=== PATIENT | female | born 1980 | race Caucasian/White ===

== ENCOUNTER 2019-05-17 17:04 | Emergency (ER) | payer OTHER ==
[2019-05-17 17:39] VITALS: BMI 25.0
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
[2019-05-17 18:45] VITALS: BP 116/66; PULSE 86; TEMP 99.3
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
== END 2019-05-17 19:56 | disposition home or self-care (01) ==
LOC: JER 17:04
DX: O99.89 Other specified diseases and conditions complicating pregnancy, childbirth and the puerperium (principal); S29.8XXA Other specified injuries of thorax, initial encounter; Y04.2XXA Assault by strike against or bumped into by another person, initial encounter; Y93.89 Activity, other specified; Y92.89 Other specified places as the place of occurrence of the external cause; Y99.0 Civilian activity done for income or pay; Z3A.25 25 weeks gestation of pregnancy
CPT/HCPCS: 99281-25

== ENCOUNTER 2019-09-19 11:35 | Inpatient (IN) | payer OTHER ==
[2019-09-19] MEDS ORDERED: AMPICILLIN - 2 GM in SODIUM CHLORIDE 100 ML IVPB ONE (12:41)
--- NOTE | 2019-09-19 12:50 | HP ---
Past Medical History - Primary Care Physician PCP:: Josafat Ramirez - Admission Chief Complaint: Spotting History of Present Illness: Patient reports spotting earlier this morning followed by sever cramping. She reports the amount of spotting as an "orange size". She denies LOF, contractions have improved now, and she reports +FM. Patient reports headache that required her to take "advil." She denies SOB, CP, N/V, blurry vision, RUQ/ epigastric pain, LE swelling. History Source: Patient Limitations to Obtaining History: No Limitations - Past Medical History DRIER ATTENDANT: No: Alzheimer's, CVA, Dementia, Migraine, Multiple Sclerosis, Peripheral Neuropathy, Parkinson's, Seizure, Syncope, TIA, Vertigo, Other Cardiovascular: No: AFIB, Aneurysm, Aortic Insufficiency, Aortic Stenosis, CAD, CHF, Deep Vein Thrombosis, HTN, Hyperlipdemia, TN, Mitral Insufficiency, Mitral Stenosis, Murmur, Pulmonary Hypertension, Other Pulmonary: No: Asthma, Bronchitis, Cancer, COPD, O2 Dependent, Pneumonia, Previously Intubated, Pulmonary Embolus, Pulmonary Fibrosis, Sleep Apnea, Other Gastrointestinal: No: Ascites, Cancer, Constipation, Crohn's Disease, Diverticulitis, Diverticulosis, Esophageal Varices, Gastritis, GERD, GI Bleed, Hemorrhoids, Hiatal Hernia, Inflamatory Bowel Disease, Irritable Bowel Disease, Pancreatitis, Peptic Ulcer Disease, Ulcerative Colitis, Other Hepatobiliary: No: Cirrhosis, Cholelithiasis, Cholecystitis, Choledocholithiasis , Hepatitis A, Hepatitis B, Hepatitis C, Other Renal/: No: Renal Failure, Renal Inusuff, BPH, Cancer, Hematuria, Hemodialysis , Neurogenic Bladder, Renal Calculi, UTI, Other Reproductive: No: Ectopic , Endometriosis, Fibroids, PID, Polycystic Ovary Syndrome, Postmenopausal, Other - Past Surgical History Past Surgical History: No: None, AAA Repair, AICD, Amputation, Appendectomy, Arthrosocopy, AV Fistula/Graft, Bariatric Surgery, Breast Biopsy, Bypass, CABG, Carotid Endarterectomy, Cataract Removal, Cholecystectomy, Colectomy, Colonoscopy, Colostomy, Craniotomy, , Cystectomy, Hernia Repair, Hysterectomy, Ileal Conduit, Ileosotomy, Joint Replacement, Kidney Transplant, Laminectomy, Liver Transplant, Mastectomy, Nephrectomy, Oopherectomy, Orchiectomy, Permanent Pacemaker, Prostatectomy, Splenectomy, Stent, Thoracotomy , TURP, Tonsillectomy, Tubal Ligation, Upper Endoscopy, Valve Replacement, Vasectomy, Vein Stripping/Ligation Hx Myomectomy: No Hx Transabdominal Cerclage: No Additional Surgical History: Abdominoplasty - Smoking History Smoking history: Never smoked Have you smoked in the past 12 months: No Aproximately how many cigarettes per day: 0 - Alcohol/Substance Use Hx Alcohol Use: No History of Substance Use: reports: None Home Medications - Allergies Allergies/Adverse Reactions: Allergies Allergy/AdvReac Type Severity Reaction Status Date / Time No Known Allergies Allergy Verified 09/19/19 12:43 - Home Medications Home Medications: Ambulatory Orders No Home Medications 0 dose .ROUTE UTDICT 08/06/13 Family Medical History Family Hx Cancer: Mother (breast) Family Hx Congestive Heart Failure: Grandmother (maternal) Family Hx Diabetes: Grandmother (maternal), Mother Review of Systems - Review of Systems Constitutional: reports: No Symptoms Eyes: reports: No Symptoms HENT: reports: No Symptoms Neck: reports: No Symptoms Cardiovascular: reports: No Symptoms Respiratory: reports: No Symptoms Gastrointestinal: reports: No Symptoms Genitourinary: reports: No Symptoms Breasts: reports: No Symptoms Reported Musculoskeletal: reports: No Symptoms Integumentary: reports: No Symptoms Neurological: reports: Headache Endocrine: reports: No Symptoms Hematology/Lymphatic: reports: No Symptoms Psychiatric: reports: No Symptoms Physical Exam - Maternity Constitutional: Yes: Well Nourished, Calm Eyes: Yes: WNL HENT: Yes: Atraumatic, Normocephalic Neck: Yes: Supple Cardiovascular: Yes: Regular Rate and Rhythm Breast(s): Yes: Other (deferred) - Abdominal Exam/OB Number of Fetuses: Single Presentation: Vertex (bedside sono: [place], KATHI 6cm) Contractions: Yes Regularity: Irregular Intensity: Mild Monitor Mode: External Heart Rate (range): 140 Category: I Accelerations: Uniform Decelerations: None - Vaginal Exam/OB Vaginal Bleediing: Old Blood (scant) Speculum Exam: No Dilatation (cm): 0.5 Effacement (%): 0 Amniotic Membrane Status: Intact Presentation: Vertex/Position Station: -3 - Physical Exam Musculoskeletal: Yes: WNL Extremities: Yes: WNL Edema: Yes Edema: LLE: Trace, RLE: Trace Integumentary: Yes: WNL Deep Tendon Reflex Grade: Normal +2 (no clonus) ...Motor Strength: WNL Psychiatric: Yes: Alert, Oriented Imaging - Results Ultrasound: Report Reviewed Assessment/Plan 39 y/o @ 40.0 wks of gestation presenting for rule out labor. Patient is not in active PTL and status is reassuring. BPs on presentation are labile in normal to mild range, patient reports CAICEDO. Bedside sono revealed borderline KATHI of 6cm. India[place] for admission and IOL discussed with patient, hypertensive disorder of (GHTN vs PEC). Risks and complications of induction of labor explained and all questions answered. -Informed consent -PEC labs -Moniotor BPs -Initiate IOL with PO cytotec.
[2019-09-19] MEDS: MISOPROSTOL 100 MCG TABLET PO SCH ×2 (13:00→18:08)
[2019-09-19 13:02] LABS: BASO % 0.7 % (0-2.0); EOS % 2.2 % (0-4.5); HEMOGLOBIN 12.6 GM/dL (10.7-15.3); LYMPH % 16.6 % (8-40); MCH 28.7 pg (25.7-33.7); MCHC 32.5 g/dl (32.0-36.0); MEAN CELL VOLUME 88.4 fl (80-96); MEAN PLT VOLUME 9.9 fl (7.5-11.1); MONO % 5.8 % (3.8-10.2); NEUT % 74.7 % (42.8-82.8); PLATELET COUNT 172 K/MM3 (134-434); RBC 4.41 M/mm3 (3.60-5.2); RDW 14.5 % (11.6-15.6); WHITE BLOOD COUNT 9.9 K/mm3 (4.0-10.0)
[2019-09-19] MEDS ORDERED: AMPICILLIN SODIUM 2 GM VIAL ONE (13:11)
[2019-09-19] MEDS: ELECTROLYTE-148 SOLN 1,000 ML IV SCH (13:15)
[2019-09-19 13:43] LABS: ALBUMIN 2.4 g/dl (3.4-5.0); BILIRUBIN,TOTAL 0.3 mg/dL (0.2-1); BLOOD UREA NITROGEN 9.5 mg/dL (7-18); CALCIUM 8.4 mg/dL (8.5-10.1); CREATININE 0.8 mg/dL (0.55-1.3); POTASSIUM 3.8 mmol/L (3.5-5.1); TOT PROT 6.1 g/dl (6.4-8.2); URIC ACID 4.4 mg/dL (2.6-7.2)
[2019-09-19 13:46] LABS: INR 0.94 (0.83-1.09); PROTHROMBIN TIME (PATIENT) 11.1 SEC (9.7-13.0)
[2019-09-19 13:49] LABS: ACTIVATED PTT 26.7 SECONDS (25.2-36.5)
[2019-09-19] MEDS ORDERED: ACETAMINOPHEN 325 MG TABLET (FP) ONE ×2 (13:59→21:54)
[2019-09-19] MEDS: ACETAMINOPHEN 325 MG TABLET (FP) PO PRN ×2 (14:00→21:59)
[2019-09-19 14:20] VITALS: BMI 29.2
[2019-09-19] MEDS ORDERED: DINOPROSTONE 10 MG VAGINAL SUPPOSITORY VG ONE (15:13)
--- NOTE | 2019-09-19 15:19 | PN ---
Progress Note, Labor Vaginal Exam #1 Labor Exam Date: 09/19/19 Labor Exam Time: 15:19 Heart Rate (range): Cat I Dilatation: 0.5 Effacement (%): 0 Amniotic Membrane Status: Intact Presentation: Vertex/Position Station: -3 Remarks: Patient examined, cervix long/fingertip Cervidil placed Reassuring FHT Re-exaine 12 hours or prn
[2019-09-19] MEDS ORDERED: AMPICILLIN - 1 GM in SODIUM CHLORIDE 100 ML IVPB SCH (16:42)
[2019-09-19] MEDS ORDERED: AMPICILLIN SODIUM 1 GM VIAL ONE ×2 (17:12→21:53)
[2019-09-19] MEDS: AMPICILLIN - 1 GM in SODIUM CHLORIDE 100 ML IVPB SCH ×2 (17:15→21:15)
[2019-09-20] MEDS: AMPICILLIN - 1 GM in SODIUM CHLORIDE 100 ML IVPB SCH ×3 (01:15→09:35)
[2019-09-20] MEDS ORDERED: AMPICILLIN SODIUM 1 GM VIAL ONE ×3 (01:31→09:35)
[2019-09-20] MEDS: MISOPROSTOL 100 MCG TABLET PO SCH (01:46)
[2019-09-20] MEDS: ELECTROLYTE-148 SOLN 1,000 ML IV SCH (03:15)
--- NOTE | 2019-09-20 06:46 | PN ---
Progress Note, Labor Vaginal Exam #2 Labor Exam Date: 09/20/19 Labor Exam Time: 06:45 Heart Rate (range): Cat I Dilatation: 3 Effacement (%): 70 Amniotic Membrane Status: Intact Presentation: Vertex/Position Station: -3 Remarks: Pt reports SROM 0700 Now 3-4cm Asking for epidural, then will start pitocin prn Cont Amp Anticipate eventual Marc Herrera MD
[2019-09-20] MEDS ORDERED: OXYTOCIN 30 UNITS in 0.9% NS 30 UNIT/500 ML INFUS.BAG IVPB SCH (07:15)
[2019-09-20] MEDS ORDERED: ACETAMINOPHEN 500 MG TABLET (FP) ONE (07:24)
[2019-09-20] MEDS ORDERED: BUPIVACAINE HCL/PF 2.5 MG/ML - 30 ML VIAL IJ ONE (07:28)
[2019-09-20] MEDS ORDERED: LIDO 2%/EPI 1:200000 PRESRVFRE (20 ML SDVIAL) ONE (07:28)
[2019-09-20] MEDS ORDERED: ACETAMINOPHEN 500 MG TABLET (FP) PO ONE (07:30)
[2019-09-20] MEDS ORDERED: FENTANYL/BUPIVACAINE/NS/PF - PCEA - 50 ML DISP.SYRIN EP ONE (07:45)
[2019-09-20] MEDS ORDERED: NALOXONE HCL 0.4 MG/ML VIAL IVPUSH PRN (07:48)
[2019-09-20] MEDS ORDERED: FENTANYL/BUPIVACAINE/NS/PF - PCEA - 50 ML DISP.SYRIN EP SCH (08:00)
--- NOTE | 2019-09-20 09:51 | PN ---
Progress Note (short form) - Note Progress Note: 39 yrs , 40 weeks admitted on 09/19/19 for induction of labor by Dr gregory for gestational HTN, labile, headaches . Cervidil inserted by Dr Herrera & after 12 hrs removed at 3.15 AM 09/20/19 pt progressed in labor on her own SROM at 7.00AM 7.50 AM epidural was given post epidural BP dropped to 67/36, episode of bradycardia to 60-70 bpm was noted , which recovered after 6 min anesthesilogist gave ephidrine BP came up fhr 160 -170 UC 2-3 min scalp electrode applied 9.15AM 6cm 100 % , MR , Vx -2, scalp electrode applied epidural restarted GBS Pos , she has been receiving iv ampicillin since yesterday she received 1000 mg po tylenol twice for headache ,last dose was given at 7.28AM Selected Entries 09/20/19 09/20/19 09:15 09:30 Pulse Rate 96 H 108 H Blood Pressure 117/92 135/93 Pa Ob history : 2 : 05/2003, 04/2008 (wt 6'5" at [facility]) - care at , [facility] h/o ? laprotomy for endometriosis & adnomyosis h/o abdominoplasty : 2014 AMA , NTscreen & AFP neg Plan Expectant management . ct trial of labor for vaginal delivery Laboratory Tests 09/19/19 09/19/19 09/19/19 12:48 12:50 12:50 WBC 9.9 Hgb 12.6 Hct 39.0 Plt Count 172 PT with INR 11.10 INR 0.94 PTT (Actin FS) 26.7 Sodium Potassium Chloride Carbon Dioxide BUN Creatinine Uric Acid Calcium AST ALT Protein/Creatinin Ratio RPR Titer Blood Type B NEGATIVE Antibody Screen Positive 09/19/19 09/19/19 09/19/19 12:50 12:50 13:40 WBC Hgb Hct Plt Count PT with INR INR PTT (Actin FS) Sodium 139 Potassium 3.8 Chloride 109 H Carbon Dioxide 22 BUN 9.5 Creatinine 0.8 Uric Acid 4.4 Calcium 8.4 L AST 13 L ALT 14 Protein/Creatinin Ratio 0.2 RPR Titer Nonreactive Blood Type Antibody Screen 10 30 AM : 7 cm/100 %/,/vx -1 UC 2-3 min FHR :140 -150 , sometimes mild variable decel , cat -2 , sometimes cat-1 11.50 AM : 9cm/100/vx /0/+1 , FHR : 140-150 12.00 noon fully dialted, vx +2 , , , fhr 120 pt pushing starr catheter removed
[2019-09-20] MEDS ORDERED: OXYTOCIN 20 UNITS in 0.9% NS 20 UNIT/1,000 ML INFUS.BAG IV ONE (11:57)
[2019-09-20] MEDS: OXYTOCIN 20 UNITS in 0.9% NS 20 UNIT/1,000 ML INFUS.BAG IV SCH ×2 (12:10→15:47)
[2019-09-20] MEDS ORDERED: BENZOCAINE 28 GM HEMORRHOIDAL OINTMENT TP PRN (12:33)
[2019-09-20] MEDS ORDERED: BENZOCAINE 20% 57 GM BOTTLE TP PRN (12:33)
[2019-09-20] MEDS ORDERED: WITCH HAZEL 50% (TUCKS) 40 PAD/JAR PAD TP PRN (12:33)
[2019-09-20] MEDS ORDERED: oxyCODONE HCL 5 MG TABLET PO PRN (12:33)
[2019-09-20] MEDS ORDERED: METHYLERGONOVINE MALEATE 0.2 MG/1 ML AMP IM PRN (12:33)
[2019-09-20] MEDS ORDERED: BISACODYL 10 MG SUPP.RECT RC PRN (12:33)
--- NOTE | 2019-09-20 12:44 | PN ---
Delivery - Delivery Vaginal Delivery: No Problems, Spontaneous (, vx, carleen position , cord around neck x3 , cord clamped & cut , released before the delivery of shoulder , thick meconium amniotic fluid noted , placenta delievered completely with membranes ,.1st degree laceration sutured under local anesthesia with chr catgut #2/0 . . cord segment cut for cord blood gas , cord blood collected. trvascular cord . sponge count correct) Type of Anesthesia: Epidural Episiotomy/Laceration: Perineal Extension/lac, 1st degree EBL (cc): 300 Delivery, Single - Stages of Labor Date 1st Stage Initiatied: 09/20/19 Time 1st Stage Initiated: 06:00 Date 2nd Stage Initiated: 09/20/19 Time 2nd Stage Initiated: 12:00 Date of Delivery: 09/20/19 Time of Delivery: 12:06 Date Placenta Delivered: 09/20/19 Time Placenta Delivered: 12:10 Placenta: Yes: Spontaneous, Uterine Exploration - Condition of Infant Gender: Female Weight: 7 lb Position: Left, OA (cord around neckx3) Total Hours ROM (Hrs/Mins): 5hrs, 10 min thick meco - 1 Minute Total Score: 8 5 Minutes Total Score: 9 - Feeding Plan Initial Plan: Elected not to breastfeed exclusively throughout hospitalization Remarks - Remarks Remarks: 39 yrs( AMA) , , 40 weeks, admitted for induction due to GHTN , cervidil induction gbs pos , pt receieved iv ampicillin total 6 doses . intrapartum sometimes fhr cat-2 pp v/s stable Selected Entries 09/20/19 09/20/19 09/20/19 10:00 13:00 13:15 Pulse Rate 124 H 115 H 109 H Respiratory 17 Rate Blood Pressure 128/72 141/85 136/80 O2 Sat by Pulse 100 Oximetry (%) 09/20/19 09/20/19 13:30 13:45 Pulse Rate 115 H 112 H Respiratory Rate Blood Pressure 137/87 127/76 O2 Sat by Pulse Oximetry (%)
[2019-09-20] MEDS: IBUPROFEN 600 MG TABLET (FP) PO PRN (20:24)
[2019-09-20] MEDS: ACETAMINOPHEN 325 MG TABLET (FP) PO PRN (20:25)
--- NOTE | 2019-09-21 07:06 | PN ---
Progress Note (short form) - Note Progress Note: ppd 1 , no c/o ,no excess vaginal bleeding, voids ok CBC, BMP 09/19/19 12:50 09/19/19 12:50 Last Vital Signs Temp Pulse Resp BP Pulse Ox 98.1 F 72 18 104/63 95 09/21/19 05:51 09/21/19 05:51 09/21/19 05:51 09/21/19 05:51 09/20/19 13:45 abdomen soft, uterus firm, non tender no calf tenderness plan ambulate , cbc
[2019-09-21 07:57] LABS: BASO % 0.4 % (0-2.0); EOS % 1.6 % (0-4.5); HEMATOCRIT 35.6 % (32.4-45.2); HEMOGLOBIN 11.6 GM/dL (10.7-15.3); LYMPH % 14.4 % (8-40); MCHC 32.5 g/dl (32.0-36.0); MEAN CELL VOLUME 89.2 fl (80-96); MEAN PLT VOLUME 9.9 fl (7.5-11.1); MONO % 5.1 % (3.8-10.2); NEUT % 78.5 % (42.8-82.8); PLATELET COUNT 142 K/MM3 (134-434); RBC 3.99 M/mm3 (3.60-5.2); RDW 14.7 % (11.6-15.6)
[2019-09-21] MEDS: FERROUS SO4 325 MG TABLET (FP) PO SCH ×3 (08:50→17:12)
[2019-09-21] MEDS: PRENATAL VITAMINS W/ FOLIC ACID TABLET (FP) PO SCH (09:19)
[2019-09-21] MEDS ORDERED: SENNOSIDES/DOCUSATE COMBO (SENNA PLUS) TABLET (UD) PO PRN (22:00)
[2019-09-21] MEDS: IBUPROFEN 600 MG TABLET (FP) PO PRN (23:28)
[2019-09-21] MEDS: ACETAMINOPHEN 325 MG TABLET (FP) PO PRN (23:29)
--- NOTE | 2019-09-22 06:56 | DS ---
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 Vital Signs: Vital Signs Temperature 98.4 F 09/21/19 21:13 Pulse Rate 97 H 09/21/19 21:13 Respiratory Rate 18 09/21/19 21:13 Blood Pressure 138/78 09/21/19 21:13 O2 Sat by Pulse Oximetry (%) 95 09/20/19 13:45 Constitutional: Yes: Well Nourished, Obese Eyes: Yes: WNL HENT: Yes: WNL Neck: Yes: WNL Cardiovascular: Yes: WNL, Regular Rate and Rhythm Respiratory: Yes: WNL Gastrointestinal: Yes: WNL ...Rectal Exam: Yes: WNL Renal/: Yes: WNL ....Post : Yes: Uterus firm, Uterus non-tender, Moderate lochia rubra Breast(s): Yes: WNL (BF , breast not engorged) Musculoskeletal: Yes: WNL Extremities: Yes: WNL. No: Calf Tenderness Edema: LLE: 1+, RLE: 1+ Integumentary: Yes: WNL Neurological: Yes: WNL ...Motor Strength: WNL Psychiatric: Yes: WNL, Alert, Oriented Labs: CBC, BMP 09/21/19 07:25 09/19/19 12:50 Delivery - Delivery Vaginal Delivery: No Problems, Spontaneous (, vx, carleen position , cord around neck x3 , cord clamped & cut , released before the delivery of shoulder , thick meconium amniotic fluid noted , placenta delievered completely with membranes ,.1st degree laceration sutured under local anesthesia with chr catgut #2/0 . . cord segment cut for cord blood gas , cord blood collected. trvascular cord . 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 intrapartum sometimes fhr cat-2 pp v/s stable Selected Entries 09/20/19 09/20/19 09/20/19 10:00 13:00 13:15 Pulse Rate 124 H 115 H 109 H Respiratory 17 Rate Blood Pressure 128/72 141/85 136/80 O2 Sat by Pulse 100 Oximetry (%) 09/20/19 09/20/19 13:30 13:45 Pulse Rate 115 H 112 H Respiratory Rate Blood Pressure 137/87 127/76 O2 Sat by Pulse Oximetry (%) pp course uneventful. discharge today Discharge Summary Problems reviewed: Yes Reason For Visit: LABOR INDUCTION Current Active Problems 40 weeks gestation of (Acute) Elective induction of labor planned (Acute) Gestational hypertension affecting third (Acute) Normal spontaneous vaginal delivery (Acute) Procedures: Principal: Hospital Course: uneventful Health Concerns: needs pp btl Plan of Treatment: ct pnv . Goals: maternal & well being Condition: Stable - Instructions Diet, Activity, Other Instructions: Post Instructions DIET: Continue good diet high in protein, calcium, and iron rich foods. Drink at least eight (8) glasses of water daily in addition to other fluids. ct Regular diet MEDICATIONS: Continue vitamins and iron as previously directed. Motrin and Tylenol may be taken for minor discomfort. ACTIVITY: Mild to moderate exercise may be started in two (2) weeks. Take frequent rest periods. Resume normal activity after six (6) week check up. WOUND CARE OF OPERATIVE SITE: Continue use of perineal bottle until vaginal discharge stops. Keep area clean. Shower daily. Keep abdominal wound dry. Report any drainage or redness to physician. Tub baths, tampons and douches are not permitted for [address] Breast feeding & or Bottle feeding BREAST CARE: (For those that are not breast feeding): If engorgement occurs: Wear tight fitting bra. Take Tylenol or Motrin for pain. Apply cold packs (ice in bags to each breast ) FAMILY PLANNING: There are many control alternatives to pursue and they should be discussed at your first office visit. You may resume sexual activity after your six (6) week check up. (Remember, breast feeding is not a contraceptive) NEXT PHYSICIAN APPOINTMENT: Be certain to call for a four (4-6) week appointment, unless otherwise directed. Call clinic for appt at [address] [place] [address] [phone] Call Clinic or got to Emergency Dept if you have any of the following: Heavy vaginal bleeding Painful urination Leg pain Unusual odor noted to vaginal bleeding High fever Red streaking noted on breast Referrals: Dottie Lobo MD [Staff Physician] - Disposition: HOME - Home Medications Comprehensive Discharge Medication List: Ambulatory Orders No Home Medications 0 dose .ROUTE UTDICT 08/06/13 Acetaminophen [Tylenol .Regular Strength -] 650 mg PO Q3H PRN tablet 09/21/19 Ferrous Sulfate [Feosol] 325 mg PO BIDWM tab 09/21/19 Ibuprofen [Motrin -] 200 mg PO Q4H PRN tablet 09/21/19 Vitamins (Sjr) - 1 tab PO DAILY #60 tablet 09/21/19 Prescription Drug Monitoring Program (I-STOP) results: I-STOP reviewed and no issues identified
[2019-09-22] MEDS: FERROUS SO4 325 MG TABLET (FP) PO SCH (10:03)
[2019-09-22] MEDS: PRENATAL VITAMINS W/ FOLIC ACID TABLET (FP) PO SCH (10:04)
[2019-09-22] MEDS: IBUPROFEN 600 MG TABLET (FP) PO PRN (10:04)
[2019-09-22] MEDS: ACETAMINOPHEN 325 MG TABLET (FP) PO PRN (10:05)
[2019-09-22 12:02] VITALS: BP 132/84; PULSE 87; TEMP 98.3
== END 2019-09-22 12:20 | disposition home or self-care (01) | DRG 560 ==
LOC: JDEL 11:35 → JLDR 12:20 → J3W 09-20 14:50
PROVIDERS: ADMIT Obstetrics & Gynecology; ATTEND Obstetrics & Gynecology
PROC: 10E0XZZ Delivery of Products of Conception, External Approach (ICD-10-PCS; principal; 2019-09-20)
PROC: 0HQ9XZZ Repair Perineum Skin, External Approach (ICD-10-PCS; 2019-09-20)
DX: O13.4 Gestational [pregnancy-induced] hypertension without significant proteinuria, complicating childbirth (principal); O99.214 Obesity complicating childbirth; E66.9 Obesity, unspecified; O69.81X0 Labor and delivery complicated by cord around neck, without compression, not applicable or unspecified; O70.0 First degree perineal laceration during delivery; O99.824 Streptococcus B carrier state complicating childbirth; Z3A.40 40 weeks gestation of pregnancy; Z37.0 Single live birth
CPT/HCPCS: 36415; 36600; 59025; 59409; 80048; 80053; 82570; 82803; 83615; 84156; 84550; 85025; 85461; 85610; 85730; 86593; 86850; 86870; 86900; 86901; 86902; 86999

== ENCOUNTER 2019-11-07 11:02 | Day surgery (SDC) | payer OTHER ==
[2019-11-06 11:23] VITALS: BMI 26.1
[2019-11-07] MEDS ORDERED: BUPIVACAINE HCL/PF 0.25% (2.5MG/ML) 10 ML VIAL ONE (12:38)
[2019-11-07] MEDS ORDERED: DEXAMETHASONE SOD PHOSPHATE 4 MG/1 ML VIAL ONE ×2 (12:43→14:11)
[2019-11-07] MEDS ORDERED: PROPOFOL 20 ML ONE ×2 (12:43→13:11)
[2019-11-07] MEDS ORDERED: MIDAZOLAM HCL 2 MG/2 ML SINGLE DOSE VIAL ONE ×2 (12:43→13:11)
[2019-11-07] MEDS ORDERED: ROCURONIUM BROMIDE 50 MG/5 ML SYRINGE ONE ×2 (12:43→13:19)
--- NOTE | 2019-11-07 13:09 | HP ---
Admitting History and Physical - Admission Chief Complaint: Scheduled BTL History of Present Illness: 39yo here for permanent sterilization. Declined LARCs previously No complaints today Still BF. History Source: Patient Limitations to Obtaining History: Language Barrier - Past Medical History DEMOGRAPHER: No: Alzheimer's, CVA, Dementia, Migraine, Multiple Sclerosis, Peripheral Neuropathy, Parkinson's, Seizure, Syncope, TIA, Vertigo, Other Cardiovascular: No: AFIB, Aneurysm, Aortic Insufficiency, Aortic Stenosis, CAD, CHF, Deep Vein Thrombosis, HTN, Hyperlipdemia, DE, Mitral Insufficiency, Mitral Stenosis, Murmur, Pulmonary Hypertension, Other Pulmonary: No: Asthma, Bronchitis, Cancer, COPD, O2 Dependent, Pneumonia, Previously Intubated, Pulmonary Embolus, Pulmonary Fibrosis, Sleep Apnea, Other Gastrointestinal: No: Ascites, Cancer, Constipation, Crohn's Disease, Diverticulitis, Diverticulosis, Esophageal Varices, Gastritis, GERD, GI Bleed, Hemorrhoids, Hiatal Hernia, Inflamatory Bowel Disease, Irritable Bowel Disease, Pancreatitis, Peptic Ulcer Disease, Ulcerative Colitis, Other Renal/: No: Renal Failure, Renal Inusuff, BPH, Cancer, Hematuria, Hemodialysis , Neurogenic Bladder, Renal Calculi, UTI, Other ...LMP: 09/20/19 ...LMP Comment: PT. GAVE 09/20/19 - Past Surgical History Past Surgical History: No: None, AAA Repair, AICD, Amputation, Appendectomy, Arthrosocopy, AV Fistula/Graft, Bariatric Surgery, Breast Biopsy, Bypass, CABG, Carotid Endarterectomy, Cataract Removal, Cholecystectomy, Colectomy, Colonoscopy, Colostomy, Craniotomy, , Cystectomy, Hernia Repair, Hysterectomy, Ileal Conduit, Ileosotomy, Joint Replacement, Kidney Transplant, Laminectomy, Liver Transplant, Mastectomy, Nephrectomy, Oopherectomy, Orchiectomy, Permanent Pacemaker, Prostatectomy, Splenectomy, Stent, Thoracotomy , TURP, Tonsillectomy, Tubal Ligation, Upper Endoscopy, Valve Replacement, Vasectomy, Vein Stripping/Ligation - Smoking History Smoking history: Never smoked Have you smoked in the past 12 months: No Aproximately how many cigarettes per day: 0 - Alcohol/Substance Use Hx Alcohol Use: No History of Substance Use: reports: None Home Medications - Allergies Allergies/Adverse Reactions: Allergies Allergy/AdvReac Type Severity Reaction Status Date / Time No Known Allergies Allergy Verified 09/19/19 12:43 - Home Medications Home Medications: Ambulatory Orders Vitamins (Sjr) - 1 tab PO DAILY #60 tablet 09/21/19 Ibuprofen [Motrin -] 200 mg PO PRN PRN 11/06/19 Ibuprofen 600 mg PO Q6H PRN #30 tablet 11/07/19 Review of Systems - Review of Systems Constitutional: denies: No Symptoms, Chills, Diaphoresis, Fever, Lethargy, Loss of Appetite, Malaise, Night Sweats, Unintentional Wgt. Loss, Weakness, Other Cardiovascular: denies: No Symptoms, Chest Pain, Edema, Palpitations, Shortness of Breath, Other Respiratory: denies: No Symptoms, Cough, Exercise Intolerance, Hemoptysis, Orthopnea, PND, Snoring, SOB, SOB on Exertion, Wheezing, Other Physical Examination Vital Signs: Vital Signs Temperature 98.2 F 11/07/19 11:54 Pulse Rate 81 11/07/19 11:54 Respiratory Rate 16 11/07/19 11:54 Blood Pressure 122/70 11/07/19 11:54 O2 Sat by Pulse Oximetry (%) 99 11/07/19 11:54 Constitutional: Yes: Well Nourished, No Distress, Calm Eyes: Yes: WNL, Conjunctiva Clear, EOM Intact HENT: Yes: WNL, Atraumatic, Normocephalic Neck: Yes: WNL, Supple, Trachea Midline Cardiovascular: Yes: WNL, Regular Rate and Rhythm Respiratory: Yes: WNL, Regular, CTA Bilaterally Gastrointestinal: Yes: WNL, Normal Bowel Sounds Musculoskeletal: Yes: WNL Extremities: Yes: WNL Edema: No Integumentary: Yes: WNL Neurological: Yes: WNL, Alert, Oriented ...Motor Strength: WNL Psychiatric: Yes: WNL Problem List - Problems (1) Sterilization Code(s): Z30.2 - ENCOUNTER FOR STERILIZATION Assessment/Plan 39yo [id number] for sterilization NPO, IVFs SCDs Risks (bleeding, infection, injury to bladder/bowel/vessels/adnexa), alternatives discussed; declined LARCs Proceed to OR for LSC bilateral salpingectomy Marc Herrera MD
[2019-11-07] MEDS ORDERED: fentaNYL CITRATE 250 MCG/5 ML VIAL ONE (13:11)
[2019-11-07] MEDS ORDERED: BUPIVACAINE HCL 0.25% 125 MG/50 ML VIAL NR ONE (13:46)
[2019-11-07] MEDS ORDERED: NEOSTIGMINE METHYLSULFATE 0.5 MG/ML - 10 ML MDV ONE (14:10)
[2019-11-07] MEDS ORDERED: KETOROLAC TROMETHAMINE 30 MG/1 ML VIAL ONE (14:11)
[2019-11-07] MEDS ORDERED: GLYCOPYRROLATE 0.2 MG/1 ML VIAL ONE (14:11)
--- NOTE | 2019-11-07 14:18 | OP ---
Operative Note - Note: Operative Date: 11/07/19 Pre-Operative Diagnosis: Desires Permanent Sterlization Operation: Laparoscopic Bilateral Salpingectomy, Left Ovarian cyst aspiration Findings: Normal fallopian tubes bilaterally, normal uterus, left ovarian clear fluid filled cyst Post-Operative Diagnosis: Same as Pre-op Surgeon: Jannet Herrera Heat Treat Puller: Reyna Durán Anesthesia: General Specimens Removed: Bilateral Fallopian Tubes Estimated Blood Loss (mls): 25 Drains, Volume Out (mls): 200 (clear urine) Operative Report Dictated: Yes
[2019-11-07] MEDS ORDERED: oxyCODONE HCL 5 MG TABLET PO PRN ×2 (14:19)
[2019-11-07] MEDS ORDERED: ONDANSETRON 4 MG/2 ML VIAL IVPUSH PRN (14:19)
[2019-11-07] MEDS ORDERED: LACTATED RINGERS SOLUTION 1,000 ML IV SCH (14:30)
[2019-11-07 16:03] VITALS: TEMP 98.2
[2019-11-07 17:36] VITALS: BP 115/62; PULSE 82
--- NOTE | 2019-11-08 14:08 | OP ---
DATE OF OPERATION: 11/07/2019 PREOPERATIVE DIAGNOSIS: Desires permanent sterilization. POSTOPERATIVE DIAGNOSIS: Desires permanent sterilization. PROCEDURE: Laparoscopic bilateral salpingectomy, left ovarian cyst aspiration. ANESTHESIA: General. INTRAVENOUS FLUIDS: Per anesthesia record. ESTIMATED BLOOD LOSS: 25. URINE OUTPUT: Clear urine 200 mL at the end of the procedure. SURGEON: Jannet Herrera MD FLY RAIL OPERATOR: RUDDY Mijares FINDINGS: Normal uterus, normal fallopian tubes bilaterally, normal right ovary , left ovary enlarged with a clear, fluid-filled cyst. COMPLICATIONS: None. CONDITION: Stable to recovery room. NATURE OF THE PROCEDURE: After the appropriate consents were signed, patient was taken to the operating room. General anesthesia was administered. She was placed in dorsal lithotomy position. The abdomen and pelvis were prepped and draped in normal sterile fashion. A sterile Flores catheter was inserted into the bladder. Timeout was performed, confirming correct patient and procedure. Next, 0.25% Marcaine was injected into the umbilicus. Using a 15-blade scalpel, a 5-mm incision was made to accommodate 0-degree laparoscope which was introduced under visualization. Peritoneum was then entered without difficulty. The abdomen was insufflated with gas. The patient was placed in Trendelenburg positioning. Left lower quadrant and right lower quadrant 5-mm ports were placed under direct visualization without difficulty. Upon entry, the uterus was noted to be normal. Patient's left ovary was noted to be enlarged with a clear, fluid-filled cyst. Both fallopian tubes were noted to be normal. The patient's right ovary also appeared normal. The patient's left fallopian tube was grasped, carried through to the fimbriated edges which had small paratubal cysts. Using the LigaSure device, the fallopian tube was then freed along the mesosalpinx upon its insertion point to the uterus with subsequent bites of the LigaSure device. The fallopian tube was then freed, removed through the patient's left lower quadrant port. However, due to the paratubal cyst, could not fully be removed through the left lower quadrant port and subsequently placed in the patient's anterior cul-de-sac. Bite sites from the ligation were noted to be hemostatic. Attention was then paid to the patient's right fallopian tube which was also grasped and carried through to the fimbriated ends which were noted to be normal. Subsequent bites with the LigaSure device. The fallopian tube was then freed from its insertion. Transection point at the uterus was noted to be hemostatic. The patient's right fallopian tube was then removed through the patient's right lower quadrant port. The patient's left fallopian tube which was sitting in the anterior cul-de-sac was then removed through the patient's right lower quadrant port without difficulty. Using a needle aspirator which was introduced under direct visualization, patient's left ovary was stabilized, and the cyst was aspirated with straw-colored fluid removed. The size of the ovary then markedly decreased. There was no bleeding noted from the injection site. The needle aspirator was then removed. The abdomen was deflated of gas. Bite sites in the ovary noted to be hemostatic. Both left and right lower quadrant ports were taken out under direct visualization. The umbilical port was then taken out. Patient was taken out of Trendelenburg position. The Flores catheter was removed. The 3 incisions were closed with a 4-0 Biosyn. Appropriate bandages were placed. She was taken from the operating room to the recovery area in stable condition. MD COSMO TOPETE/[id number] MTDD
--- NOTE | 2019-11-08 18:01 | SURG ---
Surgery Spine Specialist Note Spine Specialist: Reyna Durán PA-C Date of Service: 11/07/19 Diagnosis: Desires Permanent Sterlization Procedure: Laparoscopic Bilateral Salpingectomy, Left Ovarian cyst aspiration I was present for the entirety of the operative procedure. For further detail, please refer to operative report. Visit type - Case Type Case Type: Scheduled - Emergency Emergency Visit: No - New patient This patient is new to me today: Yes Date on this admission: 11/08/19
--- NOTE | 2019-11-12 17:38 | PATH ---
Surgical Pathology Report Patient Name: GRACIA ORTIZ [facility]. Rec. #: [id number] /Age/Gender: 1980 (Age: 39) / F Account: [id number] Location: [facility] SURGICAL Taken: 11/07/2019 Received: 11/08/2019 Reported: 11/12/2019 Physicians: Jannet Herrera Specimen(s) Received A: LEFT FALLOPIAN TUBE B: RIGHT FALLOPIAN TUBE Clinical History Desired permanent sterility Final Diagnosis A. FALLOPIAN TUBE, LEFT, LAPAROSCOPIC SALPINGECTOMY: FALLOPIAN TUBE WITH PARATUBAL CYSTS, ENDOSALPINGOSIS, AND SEROSAL ADHESIONS (INCLUDING FIMBRIATED END AND FULL LUMINAL PORTION). B. FALLOPIAN TUBE, RIGHT, LAPAROSCOPIC SALPINGECTOMY: FALLOPIAN TUBE WITH ENDOSALPINGOSIS AND SEROSAL ADHESIONS (INCLUDING FIMBRIATED END AND FULL LUMINAL PORTION). Electronically Signed Vilma Montaño M.D. Gross Description A. Received in formalin labeled "left fallopian tubes," are 3 portions of fallopian tube ranging from 0.7-4.5 cm in length. The longest portion displays attached fimbria. There are 3 paratubal cysts attached to the fimbria ranging from 0.7-1.5 cm in greatest dimension. The outer surface of the fallopian tube is ivan-ledbetter with focal adhesions. Sectioning reveals an unremarkable lumen. [employer] sections are submitted in 2 cassettes as follows: 1-fimbria with attached paratubal cysts; 2-cross sections of fallopian tube. B. Received in formalin labeled "right fallopian tube," is a 4.5 cm in length fimbriated fallopian tube. The outer surface is ivan ramos with focal adhesions. Sectioning reveals an unremarkable lumen. [employer] sections are submitted in 2 cassettes as follows: 1-fimbria; 2-cross sections of fallopian tube. 11/08/201911/08/2019
== END 2019-11-07 17:30 | disposition home or self-care (01) ==
LOC: JASU-SURG 11:02
PROVIDERS: ATTEND Obstetrics & Gynecology
PROC: 0UT74ZZ Resection of Bilateral Fallopian Tubes, Percutaneous Endoscopic Approach (ICD-10-PCS; 2019-11-07)
PROC: 0U904ZX Drainage of Right Ovary, Percutaneous Endoscopic Approach, Diagnostic (ICD-10-PCS; principal; 2019-11-07 13:00)
DX: Z30.2 Encounter for sterilization (principal); N83.202 Unspecified ovarian cyst, left side
CPT/HCPCS: 36415; 84703; 86850; 86870; 86900; 86901; 86902; 88302-TC; 94760

== ENCOUNTER 2020-10-08 18:23 | Emergency (ER) | payer OTHER ==
[2020-10-08] MEDS ORDERED: DIPHTH,PERTUSS(ACELL),TET 0.5 ML DISP.SYRIN IM ONE ×2 (18:36→19:55)
[2020-10-08 18:39] VITALS: BP 139/82; PULSE 94; TEMP 98.2; BMI 28.7
== END 2020-10-08 20:48 | disposition home or self-care (01) ==
LOC: JERFT 18:23 → JER 18:23 → JERFT 20:48
PROC: 3E0234Z Introduction of Serum, Toxoid and Vaccine into Muscle, Percutaneous Approach (ICD-10-PCS; principal; 2020-10-08)
DX: S71.112A Laceration without foreign body, left thigh, initial encounter (principal)
CPT/HCPCS: 73562-TC-LT-FY; 90715; 99284-25

== ENCOUNTER 2020-10-20 17:25 | Emergency (ER) | payer OTHER ==
[2020-10-20 17:45] VITALS: BP 127/80; PULSE 97; TEMP 97.5; BMI 28.7
== END 2020-10-20 18:45 | disposition home or self-care (01) ==
LOC: JER 17:25
DX: Z48.02 Encounter for removal of sutures (principal)
CPT/HCPCS: 99281-25